=== PATIENT | male | born 1980 | race Caucasian/White ===

== ENCOUNTER 2021-02-24 10:34 | Emergency (ER) | payer BC ==
[~2021-02-24] VITALS: Ht 175.3 cm; Wt 103.5 kg
[2021-02-24 12:19] VITALS: BP 127/95
== END 2021-02-24 12:19 | disposition home or self-care (01) ==
LOC: ED 10:34
DX: M72.2 Plantar fascial fibromatosis (principal); Z87.891 Personal history of nicotine dependence